=== PATIENT | female | born 1940 | race Caucasian/White ===

== ENCOUNTER → 2016-10-21 | Outpatient (CLI) | payer MEDICARE, BC ==
[~2016-10-21] MED LIST: AZELASTINE137 MCG/0. NOSE; BUMEX1 MG PO; EFFEXOR XR75 MG PO; FISH OIL 1,0001 EAC1 PO; FLEXERIL10 MG PO; GLUCOPHAGE XR500 M1 PO; GLUCOTROL XL2.5 MG PO; IMURAN50 MG PO; K-TAB ER20 MEQ PO; LATANOPROST2.5 ML OPHTH; LOSARTAN-HCTZ1 EAC1 PO; NORCO 5-325 TA1 EACH PO; OCUVITE WITH L1 EACH PO; PRILOSEC20 MG PO; PROAIR HFA8.5 GM INH; SYMBICORT 80-10.2 GM INH; TIMOLOL MALEATE10 ML OPHTH; TRADJENTA5 MG PO; TYLENOL PM EX-1 EACH PO; VITAMIN D2000 UNI1 PO; ZOCOR20 MG PO
== END | disposition disaster alternative care site (69) ==
LOC: GBCOE 12:09
DX: Z12.31 Encounter for screening mammogram for malignant neoplasm of breast (principal)
CPT/HCPCS: G0202